=== PATIENT | female | born 1995 | race Caucasian/White ===

== ENCOUNTER 2024-11-01 12:09 | Inpatient (IN) | payer MEDICAID ==
[~2024-11-01] VITALS: Ht 157.5 cm; Wt 65.8 kg
[2024-11-01] MEDS ORDERED: MORPHINE SULFATE INJ 4 MG/ML DISP.SYRIN ONE ×2 (12:20→13:56)
[2024-11-01] MEDS ORDERED: ONDANSETRON HCL/PF 4 MG/2 ML VIAL ONE (12:20)
[2024-11-01] MEDS: MORPHINE SULFATE INJ 2 MG/ML DISP.SYRIN IV ONE ×2 (12:25→13:58)
[2024-11-01] MEDS: ONDANSETRON HCL/PF - ER 4 MG/2 ML VIAL IV ONE (12:25)
[2024-11-01] MEDS ORDERED: ACET-73 PO (14:49)
[2024-11-01] MEDS ORDERED: IBUP-1490 PO (14:49)
[2024-11-01] MEDS ORDERED: HYDR-3980 PO (14:49)
[2024-11-01] MEDS ORDERED: FENTANYL PF 100MCG/2ML AMPUL ONE ×4 (15:03→22:39)
[2024-11-01] MEDS: FENTANYL PF 100MCG/2ML AMPUL IV ONE ×4 (15:05→22:45)
[2024-11-01] MEDS ORDERED: LIDOCAINE 1%-EPI 1:100,000 20 ML VIAL ONE (22:54)
[2024-11-02] MEDS ORDERED: HYDROMORPHONE INJ 2 MG/ML DISP.SYRIN ONE ×3 (02:02→08:28)
[2024-11-02] MEDS: HYDROMORPHONE INJ 2 MG/ML DISP.SYRIN IV SCH (02:07)
[2024-11-02 10:33] VITALS: BP 121/76; TEMP 97.7; O2SAT 99
[2024-11-02 12:00] VITALS: BP 121/76; TEMP 97.7; O2SAT 99
[2024-11-02] MEDS ORDERED: ACETAMINOPHEN 325 MG TABLET PO PRN (13:30)
[2024-11-02] MEDS ORDERED: Z GUARD REMEDY 4 OZ OINT TP PRN (13:30)
[2024-11-02 14:47] LABS: PLATELET COUNT (AUTO) 155 K/uL (150-450); RED BLOOD CELL COUNT(AUTO) 4.01 MIL/uL (4.0-5.2); RED CELL DISTRIBUTION WIDTH 12.2 % (11.5-15.0); WHITE BLOOD COUNT (AUTO) 9.6 K/uL (4.3-11.0)
[2024-11-02 15:09] LABS: INR 1.04 (0.91-1.10)
[2024-11-02] MEDS: HYDROMORPHONE INJ 2 MG/ML DISP.SYRIN IV PRN (15:19)
[2024-11-02 15:52] LABS: ASPARTATE AMINOTRANSFERASE 15.0 U/L (15-37); CALCIUM, SERUM 8.6 mg/dL (8.5-10.1); CREATININE 0.6 mg/dL (0.6-1.3); SODIUM SERUM 133.0 mmol/L (136-145); TOTAL PROTEIN, SERUM 7.4 g/dL (6.4-8.2); UREA NITROGEN, BLOOD 9.0 mg/dL (7-18)
[2024-11-02 16:00] VITALS: BP 124/74; TEMP 98.4; O2SAT 98
[2024-11-02 16:00] LABS: LDL 94.0 mg/dL (0-99)
[2024-11-02] MEDS: ONDANSETRON HCL/PF 4 MG/2 ML VIAL IVP PRN (18:16)
[2024-11-02 20:51] VITALS: BP 128/77; TEMP 98.2; O2SAT 99
[2024-11-02 23:30] LABS: APPEARANCE,URINE SLIGHTLY CLOUDY (CLEAR); BLOOD, URINE 2+ Ery/uL (NEGATIVE); LEUKOCYTE ESTERASE ,URINE NEGATIVE (NEGATIVE); NITRITE, URINE NEGATIVE (NEGATIVE); UGLUCOSE NEGATIVE (NEGATIVE)
[2024-11-02 23:31] LABS: PREGNANCY TEST URINE QUAL NEGATIVE (NEGATIVE)
[2024-11-02 23:37] LABS: ADD URINE CULTURE YES; SQUAMOUS EPITHELIAL CELL,UR Many /HPF (None Seen)
[2024-11-03 04:45] VITALS: BP 125/72
[2024-11-03] MEDS ORDERED: ANESTHESIA TRAY IN PYXIS 1 EA TRAY MC ONE (06:49)
[2024-11-03] MEDS ORDERED: BUPIVACAINE 0.5 % PF 150 MG/30 ML VIAL ONE ×2 (06:50→09:41)
[2024-11-03] MEDS ORDERED: VANCOMYCIN 1 GM VIAL ONE (06:50)
[2024-11-03] MEDS ORDERED: LIDOCAINE 1% INJ 50 ML MDV IJ ONE (06:50)
[2024-11-03] MEDS ORDERED: POLYMYXIN B SULFATE 500,000 UNITS ONE (06:50)
[2024-11-03] MEDS ORDERED: LIDOCAINE 2%-EPI 1:100,000 30 ML VIAL ONE (06:50)
[2024-11-03 07:05] LABS: PLATELET COUNT (AUTO) 155 K/uL (150-450); RED BLOOD CELL COUNT(AUTO) 4.05 MIL/uL (4.0-5.2); RED CELL DISTRIBUTION WIDTH 12.1 % (11.5-15.0); WHITE BLOOD COUNT (AUTO) 8.9 K/uL (4.3-11.0)
[2024-11-03] MEDS ORDERED: FENTANYL PF 100MCG/2ML AMPUL ONE ×2 (07:22→07:23)
[2024-11-03] MEDS ORDERED: FAMOTIDINE/PF INJ 20 MG/2 ML VIAL IV ONE (07:23)
[2024-11-03] MEDS ORDERED: MIDAZOLAM HCL 2 MG/2ML VIAL ONE (07:23)
[2024-11-03] MEDS: PANTOPRAZOLE 40 MG TABLET.DR PO SCH (07:30)
[2024-11-03 07:33] LABS: CALCIUM, SERUM 9.3 mg/dL (8.5-10.1); CREATININE 0.8 mg/dL (0.6-1.3); SODIUM SERUM 137.0 mmol/L (136-145); UREA NITROGEN, BLOOD 8.0 mg/dL (7-18)
[2024-11-03] MEDS ORDERED: SEVOFLURANE 250 ML BOTTLE IH ONE (07:50)
[2024-11-03] MEDS ORDERED: LIDOCAINE HCL/MPF 1% 30 ML VIAL IJ ONE (09:40)
[2024-11-03] MEDS ORDERED: NALOXONE HCL 0.4 MG/ML AMPUL IV PRN (10:30)
[2024-11-03] MEDS ORDERED: ACETAMINOPHEN ES 500 MG TABLET PO PRN (11:00)
[2024-11-03 11:15] VITALS: BP 122/69; O2SAT 100
[2024-11-03] MEDS: ANCEF 1 GM/50 ML D5W IV SCH (15:15)
[2024-11-03 16:00] VITALS: BP 111/61; TEMP 99; O2SAT 97
[2024-11-03] MEDS: oxyCODONE HCL SR 10MG TAB.SR.12H PO PRN (18:32)
[2024-11-03 20:00] VITALS: BP 117/62; TEMP 97.5; O2SAT 99
[2024-11-04 07:30] VITALS: BP 125/68; TEMP 98.4; O2SAT 98
[2024-11-04] MEDS: ZINC SULFATE 220 MG CAPSULE PO SCH (08:10)
[2024-11-04] MEDS: ASCORBIC ACID 500 MG TABLET PO SCH (08:10)
[2024-11-04] MEDS: ACETAMINOPHEN ES 500 MG TABLET PO PRN (12:22)
[2024-11-04 16:00] VITALS: BP 115/76; TEMP 98.2; O2SAT 97
[2024-11-04 17:56] LABS: PLATELET COUNT (AUTO) 160 K/uL (150-450); RED BLOOD CELL COUNT(AUTO) 3.61 MIL/uL (4.0-5.2); RED CELL DISTRIBUTION WIDTH 12.1 % (11.5-15.0); WHITE BLOOD COUNT (AUTO) 7.2 K/uL (4.3-11.0)
[2024-11-04 18:06] LABS: CALCIUM, SERUM 9.0 mg/dL (8.5-10.1); CREATININE 0.6 mg/dL (0.6-1.3); SODIUM SERUM 141.0 mmol/L (136-145); UREA NITROGEN, BLOOD 4.0 mg/dL (7-18)
[2024-11-04 20:00] VITALS: BP 106/70; TEMP 98.8; O2SAT 96; O2SAT 98
[2024-11-05 07:30] VITALS: BP 123/80; TEMP 99.3; O2SAT 100
[2024-11-05 16:00] VITALS: BP 119/84; TEMP 98.1; O2SAT 99
== END 2024-11-05 18:08 | disposition home or self-care (01) | DRG 314 ==
LOC: EDBD 12:12 → ER 12:12 → MED 11-02 10:18
PROVIDERS: ADMIT Nurse Practitioner Acute Care; ATTEND Nurse Practitioner Acute Care
PROC: 0SBH0ZZ Excision of Right Tarsal Joint, Open Approach (ICD-10-PCS; principal; 2024-11-02)
PROC: 0QSL34Z Reposition Right Tarsal with Internal Fixation Device, Percutaneous Approach (ICD-10-PCS; 2024-11-02)
PROC: 0QHL05Z Insertion of External Fixation Device into Right Tarsal, Open Approach (ICD-10-PCS; 2024-11-02)
DX: S92.111A Displaced fracture of neck of right talus, initial encounter for closed fracture (principal); E78.5 Hyperlipidemia, unspecified; V89.2XXA Person injured in unspecified motor-vehicle accident, traffic, initial encounter; Y92.410 Unspecified street and highway as the place of occurrence of the external cause; Z87.891 Personal history of nicotine dependence; S82.51XA Displaced fracture of medial malleolus of right tibia, initial encounter for closed fracture; S82.831A Other fracture of upper and lower end of right fibula, initial encounter for closed fracture
CPT/HCPCS: 36415; 71045-TC; 73590-TC; 73600-TC; 73610-TC; 73630-TC; 73700-TC; 80048-TC; 80053-TC; 80061-TC; 81001; 83605-TC; 84443-TC; 84702-TC; 84703-TC; 85025-TC; 85730-TC; 86850-TC; 87081-TC; 87086-TC; 97116-TC; 97530-TC; A4223; A6403; G0378; J0690; J1100; J1171; J1308; J2250; J2270; J2405; J2704; J3010; J3373; J3490; J7030; J7050; J7060